=== PATIENT | female | born 1975 | race Caucasian/White ===

== ENCOUNTER 2017-08-11 10:59 | Emergency (ER) | payer MEDICAID ==
[~2017-08-11] VITALS: Ht 160 cm; Wt 52.7 kg
[~2017-08-11 10:59] MED LIST: ALD25T PO; BAC10T PO; DIPH-423 PO; FAMO-1 PO; FERR325T28 PO; FOLI-43 PO; FURO-150 PO; MULT-785 PO; NORCO10T PO; POTA20TA39 PO; PROM25TA14 PO; PROP10TA10 PO; PYRI100T2 PO; THIA100T70 PO
[2017-08-11 11:37] LABS: BASOPHILS % (AUTO) 0.1 % (0-1); EOSINOPHILS % (AUTO) 0.3 % (0-6); HEMOGLOBIN 14.2 g/dl (12.0-16.0); LYMPHOCYTES # (AUTO) 0.8 X10'3 (1.1-4.8); LYMPHOCYTES % (AUTO) 10.3 % (21-51); MEAN CORPUSCULAR HEMOGLOBIN 32.7 PG (27.0-31.0); MEAN CORPUSCULAR HGB CONC 34.6 % (33.0-36.5); MEAN CORPUSCULAR VOLUME 94.6 FL (78-98); MEAN PLATELET VOLUME 8.1 FL (7.4-10.4); MONOCYTES # (AUTO) 1.1 X10'3 (0-0.9); MONOCYTES % (AUTO) 14.5 % (2-12); NEUTROPHILS # (AUTO) 5.7 X10'3 (1.8-7.7); NEUTROPHILS % (AUTO) 74.8 % (42-75); PLATELET COUNT 125 X10'3 (140-440); RED BLOOD COUNT 4.34 X10'6 (4.20-5.60); RED CELL DISTRIBUTION WIDTH 13.4 % (11.5-14.5); WHITE BLOOD COUNT 7.6 X10'3 (4.5-11.0)
[2017-08-11 11:46] LABS: PROTHROMBIN TIME 10.2 SECONDS (9.0-12.0)
[2017-08-11 11:47] LABS: CLARITY,URINE TURBID (Clear); COLOR,URINE YELLOW (Yellow); GLUCOSE, URINE NEGATIVE (Neg); KETONES,URINE NEGATIVE (Neg); LEUKOCYTE ESTERASE ,URINE LARGE (Neg); NITRITES, URINE POSITIVE (Neg); OCCULT BLOOD,URINE SMALL (Neg); PH,URINE 6.5 (4.8-8.0); PROTEIN,URINE TRACE mg/dl (Neg); URINE HCG NEGATIVE (NEG)
[2017-08-11 11:49] LABS: UA COLLECTION TYPE CLN CATCH MIDSTREAM
[2017-08-11 11:51] LABS: ALANINE AMINOTRANSFERASE 41 U/L (12-78); ALBUMIN 3.2 G/DL (3.4-5.0); ALBUMIN/GLOBULIN RATIO 0.7 (1.1-1.5); ALKALINE PHOSPHATASE 100 IU/L (46-116); AMYLASE 74 U/L (25-115); ANION GAP 7 (8-16); ASPARTATE AMINO TRANSFERASE 31 U/L (10-37); BILIRUBIN,TOTAL 0.9 MG/DL (0.1-1.0); BLOOD UREA NITROGEN 14 MG/DL (7-18); BUN/CREATININE RATIO 18.4 (6.6-38.0); CALCIUM 8.4 MG/DL (8.5-10.1); CHLORIDE 101 MMOL/L (99-107); CREATININE 0.76 MG/DL (0.40-0.90); GLUCOSE 119 MG/DL (70-104); LIPASE 230 U/L (73-393); POTASSIUM 3.2 MMOL/L (3.5-5.1); SODIUM 138 MMOL/L (135-145); TOTAL CARBON DIOXIDE 29.6 MMOL/L (24-32); TOTAL PROTEIN 7.9 G/DL (6.4-8.2); eGFR 84 ML/MIN
[2017-08-11 12:00] LABS: BACTERIA,URINE 4+ /HPF (Neg); SQUAMOUS EPITHELIAL CELL,UR FEW /LPF (FEW)
[2017-08-11 12:01] LABS: WBC,URINE TNTC /HPF (0-4)
[2017-08-11 12:02] LABS: TRICHOMONAS,URINE FEW /HPF (NEGATIVE)
[2017-08-11] MEDS ORDERED: ondansetron/PF 4mg/2ml inj IV ONE (12:20)
[2017-08-11] MEDS ORDERED: ketorolac trometh. 30mg/ml inj. IV ONE (12:20)
[2017-08-11] MEDS ORDERED: cefTRIAXone 1g/NS 100ml IVPB 100 ML IV ONE (12:20)
[2017-08-11] MEDS ORDERED: normal saline 1000ml 1,000 ML IV ONE ×2 (12:20→14:10)
[2017-08-11] MEDS ORDERED: phenazopyridine 100mg tablet PO ONE (14:30)
[2017-08-11] MEDS ORDERED: potassium Cl 20 mEq SR tablet PO STA (14:46)
[2017-08-11] MEDS ORDERED: CEPH-572 PO (14:51)
[2017-08-11 15:35] VITALS: BP 124/56
== END 2017-08-11 15:38 | disposition home or self-care (01) ==
LOC: ER 11:00
DX: N39.0 Urinary tract infection, site not specified (principal); E87.6 Hypokalemia; I10 Essential (primary) hypertension; G89.29 Other chronic pain; F11.10 Opioid abuse, uncomplicated; Z90.49 Acquired absence of other specified parts of digestive tract; Z86.19 Personal history of other infectious and parasitic diseases; Z79.899 Other long term (current) drug therapy
CPT/HCPCS: 36415; 80053; 81001; 81025; 82150; 83605; 83690; 85025; 85610; 87040; 87077; 87088; 87186; 96361; 96365; 96375; 99284; J0696; J1885; J2405; J7030

== ENCOUNTER 2018-05-13 19:01 | Emergency (ER) | payer MEDICAID, OTHER ==
[~2018-05-13] VITALS: Ht 167.6 cm; Wt 50.0 kg
[2018-05-13 20:13] LABS: URINE HCG NEGATIVE (NEG)
[2018-05-13 20:15] LABS: CLARITY,URINE CLOUDY (Clear); COLOR,URINE YELLOW (Yellow); GLUCOSE, URINE NEGATIVE (Neg); KETONES,URINE NEGATIVE (Neg); LEUKOCYTE ESTERASE ,URINE LARGE (Neg); NITRITES, URINE POSITIVE (Neg); OCCULT BLOOD,URINE SMALL (Neg); PH,URINE 7.5 (4.8-8.0); PROTEIN,URINE 30 mg/dl (Neg)
[2018-05-13 20:21] LABS: UA COLLECTION TYPE OTHER
[2018-05-13 20:24] LABS: BACTERIA,URINE 4+ /HPF (Neg); MUCUS STRANDS MANY /LPF (Neg); SQUAMOUS EPITHELIAL CELL,UR MANY /LPF (FEW); TRICHOMONAS,URINE MOD /HPF (NEGATIVE)
[2018-05-13 20:25] LABS: RBC,URINE 0-2 /HPF (0-2); WBC,URINE 20-30 /HPF (0-4)
[2018-05-13] MEDS ORDERED: metroNIDAZOLE 500mg tablet PO ONE (21:05)
[2018-05-13] MEDS ORDERED: NITR100C6 PO (21:10)
[2018-05-13] MEDS ORDERED: ketorolac trometh inj. 60 MG/2 ML VIAL IM ONE (21:15)
[2018-05-14 00:07] VITALS: BP 129/80
[2018-05-16] MEDS ORDERED: METR500T4 PO (20:13)
== END 2018-05-13 21:44 | disposition home or self-care (01) ==
LOC: ER 19:01 → EEVIPCON 19:01 → ER 21:44
DX: T74.21XA Adult sexual abuse, confirmed, initial encounter (principal); A59.03 Trichomonal cystitis and urethritis; N39.0 Urinary tract infection, site not specified; I10 Essential (primary) hypertension; G89.29 Other chronic pain; F11.90 Opioid use, unspecified, uncomplicated; Z90.49 Acquired absence of other specified parts of digestive tract; Z79.899 Other long term (current) drug therapy; Y07.9 Unspecified perpetrator of maltreatment and neglect
CPT/HCPCS: 81001; 81025; 96372; 99284; J1885; J3490

== ENCOUNTER 2018-05-16 14:28 | Emergency (ER) | payer MEDICAID, OTHER ==
[~2018-05-16] VITALS: Ht 162.6 cm; Wt 55.0 kg
[~2018-05-16 14:28] MED LIST changes: +NITR100C6 PO
[2018-05-16 18:58] LABS: CLARITY,URINE SLIGHTLY CLOUDY (Clear); COLOR,URINE YELLOW (Yellow); GLUCOSE, URINE NEGATIVE (Neg); KETONES,URINE NEGATIVE (Neg); LEUKOCYTE ESTERASE ,URINE SMALL (Neg); NITRITES, URINE NEGATIVE (Neg); OCCULT BLOOD,URINE TRACE-INTACT (Neg); PROTEIN,URINE 30 mg/dl (Neg); UA COLLECTION TYPE CLN CATCH MIDSTREAM; URINE HCG NEGATIVE (NEG); UROBILINOGEN,URINE 0.2 E.U/dL (0.2-1.0)
[2018-05-16 19:02] LABS: BASOPHILS % (AUTO) 0.5 % (0-1); EOSINOPHILS # (AUTO) 0.1 X10'3 (0-0.9); EOSINOPHILS % (AUTO) 2.1 % (0-6); HEMOGLOBIN 14.3 g/dl (12.0-16.0); LYMPHOCYTES # (AUTO) 1.1 X10'3 (1.1-4.8); LYMPHOCYTES % (AUTO) 15.8 % (21-51); MEAN CORPUSCULAR HEMOGLOBIN 32.5 PG (27.0-31.0); MEAN CORPUSCULAR HGB CONC 33.3 % (33.0-36.5); MEAN CORPUSCULAR VOLUME 97.7 FL (78-98); MEAN PLATELET VOLUME 8.6 FL (7.4-10.4); MONOCYTES # (AUTO) 0.5 X10'3 (0-0.9); MONOCYTES % (AUTO) 7.3 % (2-12); NEUTROPHILS # (AUTO) 5.2 X10'3 (1.8-7.7); NEUTROPHILS % (AUTO) 74.3 % (42-75); PLATELET COUNT 114 X10'3 (140-440); RED CELL DISTRIBUTION WIDTH 14.1 % (11.5-14.5)
[2018-05-16 19:14] LABS: BACTERIA,URINE FEW /HPF (Neg); CAL OXALATE CRYSTALS FEW /HPF (NEGATIVE); MUCUS STRANDS NONE SEEN /LPF (Neg); RBC,URINE 0-2 /HPF (0-2); SQUAMOUS EPITHELIAL CELL,UR MANY /LPF (FEW)
[2018-05-16 19:32] LABS: ALANINE AMINOTRANSFERASE 42 U/L (12-78); ALBUMIN 3.7 G/DL (3.4-5.0); ALBUMIN/GLOBULIN RATIO 1.1 (1.1-1.5); ALKALINE PHOSPHATASE 76 IU/L (46-116); ANION GAP 8 (8-16); ASPARTATE AMINO TRANSFERASE 31 U/L (10-37); BILIRUBIN,TOTAL 0.4 MG/DL (0.1-1.0); BLOOD UREA NITROGEN 9 MG/DL (7-18); BUN/CREATININE RATIO 14.3 (6.6-38.0); CALCIUM 8.5 MG/DL (8.5-10.1); CHLORIDE 104 MMOL/L (99-107); CREATININE 0.63 MG/DL (0.40-0.90); GLUCOSE 96 MG/DL (70-104); POTASSIUM 3.9 MMOL/L (3.5-5.1); SODIUM 139 MMOL/L (135-145); TOTAL CARBON DIOXIDE 26.7 MMOL/L (24-32); TOTAL PROTEIN 7.1 G/DL (6.4-8.2); eGFR > 90 ML/MIN
[2018-05-16] MEDS ORDERED: ketorolac tromethamine 15mg/ml inj. IM ONE (19:35)
[2018-05-16] MEDS ORDERED: ondansetron 4mg rapidly disintigrating tab PO ONE (19:40)
[2018-05-16 19:47] VITALS: BP 110/69
[2018-05-16] MEDS ORDERED: DOXY100C43 PO (20:13)
[2018-05-16] MEDS ORDERED: METR-211 PO (20:13)
[2018-05-16] MEDS ORDERED: ceFOXitin 2 GM ADDVANTGE BAG 50 ML IV ONE (20:15)
== END 2018-05-16 21:00 | disposition home or self-care (01) ==
LOC: ER 14:28
DX: N73.0 Acute parametritis and pelvic cellulitis (principal); I10 Essential (primary) hypertension; G89.29 Other chronic pain; F11.90 Opioid use, unspecified, uncomplicated; Z90.49 Acquired absence of other specified parts of digestive tract; Z79.899 Other long term (current) drug therapy
CPT/HCPCS: 36415; 80053; 81001; 81025; 85025; 96365; 96372; 99283; J0694; J1885; 87081

== ENCOUNTER 2019-10-21 11:01 | Inpatient (IN) | payer MEDICAID ==
[2019-10-14 14:20] LABS: BASOPHILS % (AUTO) 0.6 % (0-1); EOSINOPHILS # (AUTO) 0.1 X10'3 (0-0.9); EOSINOPHILS % (AUTO) 2.3 % (0-6); LYMPHOCYTES # (AUTO) 0.9 X10'3 (1.1-4.8); LYMPHOCYTES % (AUTO) 16.7 % (21-51); MEAN CORPUSCULAR HEMOGLOBIN 34.2 PG (27.0-31.0); MEAN CORPUSCULAR HGB CONC 34.1 g/dL (33.0-36.5); MEAN CORPUSCULAR VOLUME 100.2 FL (78-98); MEAN PLATELET VOLUME 8.8 FL (7.4-10.4); MONOCYTES # (AUTO) 0.4 X10'3 (0-0.9); MONOCYTES % (AUTO) 8.1 % (2-12); NEUTROPHILS # (AUTO) 3.9 X10'3 (1.8-7.7); NEUTROPHILS % (AUTO) 72.3 % (42-75); PRE OP HEMATOCRIT 44.3 % (35.0-45.0); PRE OP HEMOGLOBIN 15.1 g/dL (12.0-16.0); RED BLOOD COUNT 4.42 X10'6 (4.20-5.60); RED CELL DISTRIBUTION WIDTH 13.6 % (11.5-14.5)
[2019-10-14 14:26] LABS: PRE OP INR 1.1 INR; PRE OP PROTIME 11.3 SECONDS (9.0-12.0)
[2019-10-14 14:28] LABS: ALBUMIN 3.6 G/DL (3.4-5.0); ALBUMIN/GLOBULIN RATIO 1.1 (1.1-1.5); ALKALINE PHOSPHATASE 87 IU/L (46-116); BLOOD UREA NITROGEN 12 MG/DL (7-18); BUN/CREATININE RATIO 15.4 (6.6-38.0); CALCIUM 8.3 MG/DL (8.5-10.1); CHLORIDE 103 MMOL/L (99-107); CREATININE 0.78 MG/DL (0.40-0.90); PRE OP ANION GAP 7 (8-16); PRE OP AST 67 U/L (10-37); PRE OP BILIRUB, TOTAL 0.5 MG/DL (0.0-1.0); PRE OP GLUCOSE 109 MG/DL (70-104); PRE OP POTASSIUM 3.5 MMOL/L (3.4-5.1); PRE OP SODIUM 138 MMOL/L (135-145); TOTAL CARBON DIOXIDE 28.1 MMOL/L (24-32); eGFR 81 ML/MIN
[2019-10-14 14:30] LABS: PRE OP ALT 83 U/L (30-65)
[2019-10-14 14:39] LABS: PRE OP PLATELET COUNT 96 X10'3 (140-440)
[~2019-10-21] VITALS: Ht 162.6 cm; Wt 53.1 kg
[2019-10-21] VITALS (21 sets, daily range): BP systolic 89–137; BP diastolic 48–94
[~2019-10-21 11:01] MED LIST changes: -ALD25T PO; -BAC10T PO; -DIPH-423 PO; +DOCU-151 PO; -FAMO-1 PO; -FERR325T28 PO; -FOLI-43 PO; -FURO-150 PO; +HYDR-4383 PO; -MULT-785 PO; -NITR100C6 PO; -NORCO10T PO; -POTA20TA39 PO; -PROM25TA14 PO; -PROP10TA10 PO; -PYRI100T2 PO; -THIA100T70 PO; +ceFAZolin 2gm in dextrose, iso 50 ML IV ONE; +famotidine 20mg tablet PO ONE
[2019-10-21] MEDS: ringers solution, lacted 1,000 ML IV SCH ×2 (11:23→17:56)
[2019-10-21] MEDS ORDERED: fentaNYL/PF 50MCG/1 ML 2ML syringe ONE ×2 (12:19→13:05)
[2019-10-21] MEDS ORDERED: midazolam 2 mg/2 ml injection ONE (12:20)
[2019-10-21] MEDS ORDERED: sevoflurane 250ml liquid IH ONE (12:40)
[2019-10-21] MEDS ORDERED: LIDOcaine 2% (20mg/ml) 5ml vial ONE (13:10)
[2019-10-21] MEDS ORDERED: propofol inj 20 ML IV ONE (13:10)
[2019-10-21] MEDS ORDERED: neostigmine methylsulfate 1 MG/ML 10ml vial ONE (13:10)
[2019-10-21] MEDS ORDERED: ondansetron/PF 4mg/2ml inj ONE (13:10)
[2019-10-21] MEDS ORDERED: dexamethasone sod phosphate 4mg/ml inj. ONE (13:10)
[2019-10-21] MEDS ORDERED: rocuronium 10mg/ml inj IV ONE (13:10)
[2019-10-21] MEDS ORDERED: glycopyrrolate 0.2mg/ml inj ONE (13:10)
[2019-10-21] MEDS ORDERED: ringers solution, lacted 1,000 ML IV SCH (13:19)
[2019-10-21] MEDS ORDERED: morphine 2 MG/ML inj. syringe IV PRN (13:20)
[2019-10-21] MEDS ORDERED: proCHLORperazine 10 MG/2 ml inj IV PRN (13:20)
[2019-10-21] MEDS ORDERED: ondansetron/PF 4mg/2ml inj IV PRN ×2 (13:20→13:50)
[2019-10-21] MEDS ORDERED: morphine 4 MG/ML inj SYRINge IV PRN (13:20)
[2019-10-21] MEDS ORDERED: meperidine/PF 25mg/ml syringe IV PRN ×2 (13:20)
[2019-10-21] MEDS ORDERED: BUPIVAcaine/PF 2.5 mg/ml (0.25%) 30ml vial ONE (13:34)
[2019-10-21] MEDS ORDERED: meperidine/PF 25mg/ml syringe ONE (13:39)
--- NOTE | 2019-10-21 13:44 | NUR ---
Received from OR via , accompanied by Anesthesiologist DR GIPSON and report given by Anesthesiolgist. AWAKENS TO VOICE. C/O SEVERE INCISIONAL PAIN. VITALS STABLE/ DRESSING DI. [place] WITH CLEAR RED COLORED URINE.
[2019-10-21] MEDS ORDERED: potassium cl 20mEq in 1/2 NS 1,000 ML IV SCH (13:50)
[2019-10-21] MEDS ORDERED: oxybutynin 5mg tablet PO PRN (13:50)
[2019-10-21] MEDS ORDERED: HYDROcodone/acetaminophen 10/325mg tab PO PRN ×2 (13:50)
[2019-10-21] MEDS: meperidine/PF 25mg/ml syringe IV PRN ×4 (13:58→14:36)
[2019-10-21] MEDS ORDERED: HYDROmorphone inj. 0.5 MG/0.5 ML DISP.SYRIN IV PRN (14:10)
[2019-10-21] MEDS ORDERED: BUPIVAcaine/PF 2.5mg/ml (0.25%) 10ml vial ONE (14:29)
[2019-10-21] MEDS ORDERED: BUPIVACAINE liposomal/PF 13.3 MG/ML vial IM ONE (14:29)
--- NOTE | 2019-10-21 15:34 | NUR ---
Report called to receiving nurse. Transferred via [facility] . Special Issues communicated to receiving nurse. AWAKE AND ORIENTED. VITALS STABLE. DRESSING WITH SM AMT RED DRAINAGE AT DISTAL END. STATES VERY LITTLE DISCOMFORT. TO SURGICAL RM 354A AT THIS TIME.
[2019-10-21] MEDS ORDERED: docusate sod 100mg capsule PO SCH (20:00)
[2019-10-22] VITALS: BP 109/63
[2019-10-22 04:51] LABS: BASOPHILS % (AUTO) 0.1 % (0-1); EOSINOPHILS % (AUTO) 0 % (0-6); HEMATOCRIT 40.3 % (35.0-45.0); HEMOGLOBIN 13.7 g/dl (12.0-16.0); LYMPHOCYTES # (AUTO) 0.6 X10'3 (1.1-4.8); LYMPHOCYTES % (AUTO) 7.1 % (21-51); MEAN CORPUSCULAR HEMOGLOBIN 33.9 PG (27.0-31.0); MEAN CORPUSCULAR VOLUME 99.9 FL (78-98); MEAN PLATELET VOLUME 9.3 FL (7.4-10.4); MONOCYTES # (AUTO) 0.4 X10'3 (0-0.9); MONOCYTES % (AUTO) 4.4 % (2-12); NEUTROPHILS % (AUTO) 88.4 % (42-75); PLATELET COUNT 91 X10'3 (140-440); RED BLOOD COUNT 4.03 X10'6 (4.20-5.60); RED CELL DISTRIBUTION WIDTH 13.8 % (11.5-14.5); WHITE BLOOD COUNT 7.9 X10'3 (4.5-11.0)
[2019-10-22 04:55] LABS: ALBUMIN 2.9 G/DL (3.4-5.0); ANION GAP 6 (8-16); BLOOD UREA NITROGEN 8 MG/DL (7-18); BUN/CREATININE RATIO 11.4 (6.6-38.0); CALCIUM 7.8 MG/DL (8.5-10.1); CHLORIDE 106 MMOL/L (99-107); GLUCOSE 119 MG/DL (70-104); SODIUM 136 MMOL/L (135-145); TOTAL CARBON DIOXIDE 24.4 MMOL/L (24-32); eGFR > 90 ML/MIN
[2019-10-22 07:00] VITALS: BP 85/50
--- NOTE | 2019-10-22 07:01 | NUR ---
Patient in room [facility]. I have received report from Stalin WONG and nursing program director and had the opportunity to ask questions and assume patient care.
--- NOTE | 2019-10-22 07:31 | NUR ---
PCT advised patients SBP was 78. I went in and rechecked patients BP machine read 84/51 Map 62 HR 66. Manually took blood pressure and showed to be 85/50 patient is in pain at this time, assessed patients BP trends and she has not been this low have call out to Dr Luz.
--- NOTE | 2019-10-22 07:38 | NUR ---
Page out to Dr Silver who is o/c for Dr Luz per answering service.
--- NOTE | 2019-10-22 07:44 | NUR ---
Received call back from Dr Silver patient is asymptomatic from blood pressure. is aware patients IV fluids running at 20ml/hr. Ok to give her [place] 10/325 and Toradol 15mg IV x1
[2019-10-22] MEDS ORDERED: ketorolac trometh. 30mg/ml inj. IV ONE (07:45)
[2019-10-22] MEDS ORDERED: cipro PO (10:18)
[2019-10-22 11:00] VITALS: BP 82/51
--- NOTE | 2019-10-22 14:23 | NUR ---
Patient discharge instructions reviewed with patient and patient verbalized understanding. Patients IV dc'd cannula intact. Patient was shown how to change from leg bag to night time bag. Patient verbalized understanding. Patients midline incision dressing was changed due to being saturated with blood. jose intact. Patient was given all bravo supplies and extra dressing supplies. Patient will contact Dr Luz regarding dressing orders and shower orders.
[2019-10-22] MEDS ORDERED: ciprofloxacin 250mg tablet PO SCH (20:00)
[2019-10-23] MEDS ORDERED: docusate sod 250mg capsule PO SCH (08:00)
== END 2019-10-22 14:15 | disposition home or self-care (01) | DRG 445 ==
LOC: PAS 11:01 → SUR 3N 13:49 → PAS 10-22 14:15 → SUR 3N 10-22 14:15
PROVIDERS: ADMIT Urology; ATTEND Urology
PROC: 0TJB8ZZ Inspection of Bladder, Via Natural or Artificial Opening Endoscopic (ICD-10-PCS; 2019-10-21)
PROC: 3E0T3BZ Introduction of Anesthetic Agent into Peripheral Nerves and Plexi, Percutaneous Approach (ICD-10-PCS; 2019-10-21)
PROC: 0TCB0ZZ Extirpation of Matter from Bladder, Open Approach (ICD-10-PCS; principal; 2019-10-21 12:40)
DX: N21.0 Calculus in bladder (principal); F17.210 Nicotine dependence, cigarettes, uncomplicated; N35.92 Unspecified urethral stricture, female; R31.9 Hematuria, unspecified; R33.9 Retention of urine, unspecified
CPT/HCPCS: 36415; 80048; 80053; 82948; 85025; 85610; 85730; 87635; 93005; A4338; A4357; A4618; A6402; A6449; A7000; C1758; C9290; G0378; J1100; J1885; J2001; J2175; J2250; J2405; J2704; J2710; J3010; J3480; J3490; J7120

== ENCOUNTER 2021-04-23 12:30 | Emergency (ER) | payer MEDICAID ==
[~2021-04-23 12:30] MED LIST changes: -ceFAZolin 2gm in dextrose, iso 50 ML IV ONE; +cipro PO; -famotidine 20mg tablet PO ONE
[2021-04-23] MEDS ORDERED: PERM60CR19 TP (12:44)
== END 2021-04-23 12:54 | disposition home or self-care (01) ==
LOC: ER 12:31
DX: S00.86XA Insect bite (nonvenomous) of other part of head, initial encounter (principal); R23.4 Changes in skin texture; I10 Essential (primary) hypertension; G89.29 Other chronic pain; F41.9 Anxiety disorder, unspecified; F11.90 Opioid use, unspecified, uncomplicated; F19.90 Other psychoactive substance use, unspecified, uncomplicated; Z86.69 Personal history of other diseases of the nervous system and sense organs; Z86.19 Personal history of other infectious and parasitic diseases; Z87.11 Personal history of peptic ulcer disease; Z87.440 Personal history of urinary (tract) infections; Z90.49 Acquired absence of other specified parts of digestive tract; Z98.890 Other specified postprocedural states; Z72.89 Other problems related to lifestyle; Z79.899 Other long term (current) drug therapy; W57.XXXA Bitten or stung by nonvenomous insect and other nonvenomous arthropods, initial encounter; Y93.89 Activity, other specified; Y92.89 Other specified places as the place of occurrence of the external cause; Y99.8 Other external cause status
CPT/HCPCS: 99283

== ENCOUNTER 2021-09-10 15:18 | Emergency (ER) | payer MEDICAID ==
[~2021-09-10] VITALS: Ht 157.5 cm; Wt 47.0 kg
[2021-09-10] MEDS ORDERED: PERM60CR19 TOP (16:04)
[2021-09-10] MEDS ORDERED: Permethrin Cream 60gm TP ONE (16:05)
[2021-09-10] MEDS ORDERED: Permethrin 1% 59ml topical rinse TP ONE (16:05)
[2021-09-10 16:14] VITALS: BP 113/65
== END 2021-09-10 16:41 | disposition home or self-care (01) ==
LOC: ER 15:19
DX: B88.9 Infestation, unspecified (principal); I10 Essential (primary) hypertension; G89.29 Other chronic pain; F11.90 Opioid use, unspecified, uncomplicated; Z87.440 Personal history of urinary (tract) infections; Z87.11 Personal history of peptic ulcer disease; Z86.19 Personal history of other infectious and parasitic diseases; Z90.49 Acquired absence of other specified parts of digestive tract; Z72.89 Other problems related to lifestyle; Z79.899 Other long term (current) drug therapy; Z79.2 Long term (current) use of antibiotics
CPT/HCPCS: 99283

== ENCOUNTER 2021-11-21 18:11 | Emergency (ER) | payer MEDICAID ==
[~2021-11-21] VITALS: Ht 162.6 cm; Wt 50.0 kg
[2021-11-21 18:24] VITALS: BP 91/62
[2021-11-21] MEDS ORDERED: [UNRECOGNIZED DRUG - CODE] TOP (19:08)
== END 2021-11-21 19:30 | disposition home or self-care (01) ==
LOC: ER 18:12
DX: B88.8 Other specified infestations (principal); I10 Essential (primary) hypertension; G89.29 Other chronic pain; M54.9 Dorsalgia, unspecified; F41.9 Anxiety disorder, unspecified; F12.10 Cannabis abuse, uncomplicated; F11.10 Opioid abuse, uncomplicated
CPT/HCPCS: 99282

== ENCOUNTER 2023-01-28 16:09 | Emergency (ER) | payer MEDICAID ==
[~2023-01-28] VITALS: Ht 157.5 cm; Wt 50.0 kg
[~2023-01-28 16:09] MED LIST changes: +[UNRECOGNIZED DRUG - CODE] TOP
[2023-01-28] MEDS ORDERED: HYDROmorphone 1 mg/ml syringe IV ONE (18:25)
[2023-01-28] MEDS ORDERED: ketorolac tromethamine 15mg/ml inj. IM ONE (18:50)
[2023-01-28 19:33] VITALS: BP 99/66; PULSE 76; RESP 14; TEMP 97.8; O2SAT 98
== END 2023-01-28 19:36 | disposition home or self-care (01) ==
LOC: ER 16:10
DX: S60.212A Contusion of left wrist, initial encounter (principal); F41.9 Anxiety disorder, unspecified; G89.29 Other chronic pain; F17.200 Nicotine dependence, unspecified, uncomplicated; F12.10 Cannabis abuse, uncomplicated; Z79.899 Other long term (current) drug therapy; W19.XXXA Unspecified fall, initial encounter; Y93.89 Activity, other specified; Y92.89 Other specified places as the place of occurrence of the external cause; Y99.8 Other external cause status
CPT/HCPCS: 29125; 73100; 73110; 96372; 99283; J1885

== ENCOUNTER 2023-07-09 13:54 | Emergency (ER) | payer MEDICAID ==
[~2023-07-09] VITALS: Ht 162.6 cm; Wt 50.3 kg
[2023-07-09 14:43] LABS: BASOPHILS % (AUTO) 0.2 % (0-1); EOSINOPHILS % (AUTO) 0.2 % (0-6); HEMATOCRIT 34.7 % (35.0-45.0); HEMOGLOBIN 11.8 g/dl (12.0-16.0); LYMPHOCYTES # (AUTO) 0.5 X10'3 (1.1-4.8); LYMPHOCYTES % (AUTO) 5.2 % (21-51); MEAN CORPUSCULAR HEMOGLOBIN 34.9 PG (27.0-31.0); MEAN CORPUSCULAR VOLUME 102.5 FL (78-98); MEAN PLATELET VOLUME 9.8 FL (7.4-10.4); MONOCYTES # (AUTO) 1.5 X10'3 (0-0.9); MONOCYTES % (AUTO) 14.9 % (2-12); NEUTROPHILS % (AUTO) 79.5 % (42-75); PLATELET COUNT 82 X10'3 (140-440); RED BLOOD COUNT 3.39 X10'6 (4.20-5.60); RED CELL DISTRIBUTION WIDTH 13.3 % (11.5-14.5); WHITE BLOOD COUNT 10.1 X10'3 (4.5-11.0)
[2023-07-09 15:13] LABS: BILIRUBIN,URINE NEGATIVE (Neg); CLARITY,URINE CLOUDY (Clear); COLOR,URINE YELLOW (Yellow); GLUCOSE, URINE NEGATIVE (Neg); KETONES,URINE NEGATIVE (Neg); LEUKOCYTE ESTERASE ,URINE SMALL (Neg); NITRITES, URINE POSITIVE (Neg); OCCULT BLOOD,URINE TRACE-INTACT (Neg); PROTEIN,URINE NEGATIVE (Neg)
[2023-07-09 15:14] LABS: UA COLLECTION TYPE CLN CATCH MIDSTREAM
[2023-07-09 15:19] LABS: SQUAMOUS EPITHELIAL CELL,UR MANY /LPF (FEW); TRANSITIONAL EPI CELLS,URINE FEW /HPF
[2023-07-09 15:20] LABS: BACTERIA,URINE 4+ /HPF (Neg); MUCUS STRANDS FEW /LPF (Neg); RBC,URINE 0-2 /HPF (0-2); WBC,URINE 0-4 /HPF (0-4)
[2023-07-09 15:32] LABS: ALBUMIN 2.3 G/DL (3.4-5.0); ANION GAP 7 (8-16); BLOOD UREA NITROGEN 21 MG/DL (7-18); BUN/CREATININE RATIO 29.2 (10.0-20.0); CALCIUM 7.9 MG/DL (8.5-10.1); CHLORIDE 102 MMOL/L (99-107); CREATININE 0.72 MG/DL (0.40-0.90); GLUCOSE 115 MG/DL (70-104); LIPASE 36 U/L (16-77); POTASSIUM 3.9 MMOL/L (3.5-5.1); SODIUM 136 MMOL/L (135-145); TOTAL CARBON DIOXIDE 26.7 MMOL/L (24-32); eCRCL 78 ML/MIN; eGFR 87 ML/MIN
[2023-07-09 15:53] LABS: URINE HCG NEGATIVE (NEG)
[2023-07-09 16:17] LABS: ALANINE AMINOTRANSFERASE 47 U/L (12-78); ALBUMIN/GLOBULIN RATIO 0.6 (1.1-1.5); ALKALINE PHOSPHATASE 171 IU/L (46-116); ASPARTATE AMINO TRANSFERASE 46 U/L (10-37); BILIRUBIN,DIRECT 0.8 MG/DL (0-0.3); TOTAL PROTEIN 5.9 G/DL (6.4-8.2)
[2023-07-09] MEDS: ondansetron/PF 4mg/2ml inj IV ONE (16:29)
[2023-07-09] MEDS: morphine 4 MG/ML inj SYRINge IV ONE (16:29)
[2023-07-09] MEDS: normal saline 1000ml 1,000 ML IV ONE (16:29)
[2023-07-09 16:53] VITALS: BP 101/57; PULSE 105; RESP 16; TEMP 99; O2SAT 97
[2023-07-09] MEDS ORDERED: SULF1TAB49 PO (17:23)
[2023-07-09] MEDS ORDERED: ONDA4TAB12 PO (17:23)
== END 2023-07-09 18:01 | disposition home or self-care (01) ==
LOC: ER 13:54
DX: N39.0 Urinary tract infection, site not specified (principal); R10.31 Right lower quadrant pain; R63.0 Anorexia; I10 Essential (primary) hypertension; F12.90 Cannabis use, unspecified, uncomplicated; Z79.899 Other long term (current) drug therapy; Z79.2 Long term (current) use of antibiotics; Z90.49 Acquired absence of other specified parts of digestive tract
CPT/HCPCS: 36415; 74176; 80048; 80076; 81001; 81025; 83690; 85025; 96374; 96375; 99285; J2270; J2405; J7030

== ENCOUNTER 2024-06-24 14:12 | Emergency (ER) | payer MEDICAID ==
[~2024-06-24] VITALS: Ht 157.5 cm; Wt 52.9 kg
[~2024-06-24 14:12] MED LIST changes: +ONDA-243 PO
[2024-06-24 14:14] VITALS: BP 98/59; PULSE 80; RESP 16; O2SAT 100
[2024-06-24] MEDS ORDERED: AMOX-117 PO (15:10)
[2024-06-24] MEDS: CefTRIAXone 1000mg IM Kit (w/lidocaine diluent) IM ONE (15:17)
[2024-06-24 15:21] VITALS: TEMP 97.6
== END 2024-06-24 15:22 | disposition home or self-care (01) ==
LOC: ER 14:13
DX: K04.7 Periapical abscess without sinus (principal); I10 Essential (primary) hypertension; F41.9 Anxiety disorder, unspecified; G89.29 Other chronic pain; F12.90 Cannabis use, unspecified, uncomplicated; F11.90 Opioid use, unspecified, uncomplicated; F19.90 Other psychoactive substance use, unspecified, uncomplicated; Z72.89 Other problems related to lifestyle; Z90.49 Acquired absence of other specified parts of digestive tract; Z79.899 Other long term (current) drug therapy
CPT/HCPCS: 96372; 99283; J0696

== ENCOUNTER 2025-04-05 09:31 | Outpatient (CLI) | payer MEDICAID ==
--- NOTE | 2025-04-05 10:55 | RADIOLOGY REPORT ---
INDICATION: OTHER CIRRHOSIS OF LIVER TECHNIQUE: Multiple real-time sonographic images of the abdomen were obtained. COMPARISON: CT CT ABDOMEN PELVIS on DOS: 07/09/23 FINDINGS: The liver is coarsened in echogenicity. The liver measures 14cm. No intrahepatic biliary ductal dilatation is noted. Trace ascites. Gallbladder is surgically absent. The common duct measures 0.2 cm and is unremarkable. The right kidney measures 14cm. No hydronephrosis. The left kidney measures 10 cm. No hydronephrosis. The spleen measures 11 cm, within normal limits. The echogenicity is within normal limits. The pancreas is not well visualized due to obscuration from bowel gas. The visualized portions of the IVC and aorta are grossly unremarkable. IMPRESSION: Coarsened liver echotexture suggestive of hepatic cirrhosis. Trace ascites.
== END 2025-04-05 23:59 | disposition home or self-care (01) ==
LOC: RAD 09:31
PROVIDERS: ATTEND Student in an Organized Health Care Education/Training Program
DX: K74.69 Other cirrhosis of liver (principal)
CPT/HCPCS: 76700